=== PATIENT | male | born 1970 | race Two or more races ===

== ENCOUNTER 2018-01-31 22:56 | Emergency (ER) | payer BC, OTHER ==
[~2018-01-31] VITALS: Ht 165.1 cm; Wt 78.0 kg
[2018-01-31 23:06] VITALS: BP 150/97
== END 2018-02-01 00:32 | disposition home or self-care (01) ==
LOC: ER 22:56
DX: J30.9 Allergic rhinitis, unspecified (principal); H65.93 Unspecified nonsuppurative otitis media, bilateral; M62.838 Other muscle spasm

== ENCOUNTER 2020-07-24 00:19 | Emergency (ER) | payer BC, OTHER ==
[~2020-07-24] VITALS: Ht 167.6 cm; Wt 76.2 kg
[2020-07-24 00:30] VITALS: BP 146/87
[2020-07-24] MEDS ORDERED: methylPREDNISolone SOD SUCC 125 MG/2 ML VL IM ONE (03:30)
[2020-07-24] MEDS ORDERED: KETOROLAC TROMETH 60MG/2ML VIAL IM ONE (03:30)
== END 2020-07-24 04:05 | disposition home or self-care (01) ==
LOC: ER 00:19
DX: H65.93 Unspecified nonsuppurative otitis media, bilateral (principal); I10 Essential (primary) hypertension
CPT/HCPCS: 96372; 99284; J1885; J2930

== ENCOUNTER 2023-05-22 08:16 | Inpatient (IN) | payer BC, OTHER ==
[~2023-05-22] VITALS: Ht 165.1 cm; Wt 73.4 kg
[2023-05-22] VITALS (12 sets, daily range): BP systolic 120–138; BP diastolic 72–98; PULSE 79–91; RESP 18–28; TEMP 102.3; O2SAT 93–100
[2023-05-22] MEDS ORDERED: ACETAMINOPHEN 325 MG TAB PO ONE (08:30)
[2023-05-22] MEDS ORDERED: ASPirin 81 mg TAB PO ONE (08:30)
[2023-05-22 08:42] LABS: Basophils # (auto) 0.1 10 ^3/uL (0-0.2); Basophils % (auto) 0.8 % (0.0-2.0); Eosinophils # (auto) 0.1 10 ^3/uL (0-0.8); Eosinophils % (auto) 0.8 % (0.0-7.0); Hematocrit 49.8 % (41.0-53.0); Hemoglobin 15.9 g/dL (13.5-17.5); Lymphocytes # (auto) 1.1 10 ^3/uL (0.4-5.4); Lymphocytes % (auto) 10.6 % (10.0-50.0); Mean Corpuscular Hemoglobin 27.1 pg (28.0-32.0); Mean Corpuscular Hgb Conc. 31.9 g/dL (32.0-36.0); Monocytes # (auto) 0.7 10 ^3/uL (0-1.3); Monocytes % (auto) 6.7 % (0.0-12.0); Neutrophils # (auto) 8.4 10 ^3/uL (1.6-8.6); Neutrophils % (auto) 81.1 % (37.0-80.0); Nucleated Red Blood Cells % 0.1 %; Red Blood Cells 5.86 10^6/uL (4.5-5.90); Red Cell Distribution Width 16.6 % (11.8-14.3); White Blood Cell 10.3 10^3/uL (4.4-10.8)
[2023-05-22 08:57] LABS: Chloride 102 mmol/L (98-107); Potassium 4.4 mmol/L (3.5-5.1); Sodium 132 mmol/L (136-145)
[2023-05-22 09:00] LABS: Anion Gap 10 (5-15); Calcium 8.8 mg/dL (8.7-10.4); Carbon Dioxide 20 mmol/L (20-30)
[2023-05-22 09:05] LABS: Alkaline Phosphatase 118 U/L (46-116); BUN/Creatinine Ratio 5.8 (10.0-20.0); Blood Urea Nitrogen 7 mg/dL (9-23); Glucose 122 mg/dL (74-106); Magnesium 2.1 mg/dL (1.6-2.6)
[2023-05-22 09:07] LABS: Alanine Aminotransferase 54 U/L (7-40); Albumin 4.4 g/dL (3.2-4.8); Aspartate Aminotransferase 58 U/L (13-40); Bilirubin, Total 0.7 mg/dL (0.2-1.0); Total Protein 8.2 g/dL (5.7-8.2)
[2023-05-22 09:28] LABS: INR 1.26 (0.9-1.15); Partial Thromboplastin Time 29.1 SEC (24.5-34.5)
[2023-05-22] MEDS ORDERED: IOHEXOL 350 MG/ML 100ML IJ ONE (09:39)
[2023-05-22 10:21] LABS: Lactic Acid w/Reflex 2.1 mmol/L (0.4-2.0)
[2023-05-22 10:24] LABS: Rapid Influenza A Positive (Negative); Rapid Influenza B Negative (Negative)
[2023-05-22 10:28] LABS: COVID19 ANTIGEN SOFIA FIA NEGATIVE (NEGATIVE)
[2023-05-22] MEDS ORDERED: MORPHINE SULFATE INJ 2 MG/ml SYRG IV PRN ×3 (10:30→19:30)
[2023-05-22] MEDS ORDERED: NITROGLYCERIN 0.4 MG SL TAB SL PRN ×2 (10:30→19:30)
[2023-05-22] MEDS ORDERED: ONDANSETRON HCL 4 MG/2 ML VIAL IV PRN (10:30)
[2023-05-22] MEDS ORDERED: DOCUSATE SOD 100 MG CAP PO PRN (10:30)
[2023-05-22] MEDS ORDERED: AZITHROMYCIN 500MG/ 250ML 250 ML IV ONE (10:30)
[2023-05-22 11:55] LABS: Urine Bacteria NONE SEEN /hpf (None Seen); Urine Blood TRACE /uL (Negative); Urine Clarity Clear (Clear); Urine Color Yellow (Yellow); Urine Protein, UAD 2+ (Negative); Urine Specific Gravity 1.023 (1.001-1.035); Urine Urobilinogen Normal (Negative); Urine WBC <1 /hpf (0 - 3)
[2023-05-22] MEDS: SODIUM CHLOR 0.9% PF (SALINE LOCK) 10ML VIAL/SYR IV SCH ×2 (14:23→21:56)
[2023-05-22] MEDS: HYDROcodone-ACET 5/325MG TAB PO PRN (14:58)
[2023-05-22] MEDS ORDERED: ALBUTEROL MEDNEB 2.5 mg/3ml NEB NEB PRN (15:00)
[2023-05-22] MEDS ORDERED: IPRATROPIUM BROM 0.5 MG/2.5ML INH SOL NEB PRN (15:00)
[2023-05-22] MEDS ORDERED: PROMETHAZINE HCL 25 MG/ML 1ML IV ONE (18:00)
[2023-05-22] MEDS ORDERED: IODIXANOL 320MG/ML 100ML BTL IV ONE (19:10)
[2023-05-22] MEDS ORDERED: LIDOCAINE 2%HCL (LOCAL ANESTH.) INJ 20ML MDV ONE (19:10)
[2023-05-22] MEDS ORDERED: fentaNYL CITRATE 100 MCG/2 ML VL ONE (19:31)
[2023-05-22] MEDS ORDERED: VERAPAMIL 2.5MG/ML INJ 2ML VIAL IV ONE (19:31)
[2023-05-22] MEDS ORDERED: ANGIOMAX 250 MG VIAL IV ONE (19:31)
[2023-05-22] MEDS ORDERED: HEPARIN SODIUM (PORCINE) 5000 UNITS/ML 1ML VIAL ONE (19:31)
[2023-05-22] MEDS ORDERED: SODIUM CHL 0.9% 0 ML ONE (19:32)
[2023-05-22] MEDS ORDERED: MIDAZOLAM HCL 2MG/2ML 2ml VIAL (1mg/ml) ONE (19:32)
[2023-05-22] MEDS ORDERED: HEPARIN 1,000 UNITS/ml 1ML VIAL ONE (19:35)
[2023-05-22] MEDS: ATORVASTATIN 20 MG TAB PO SCH ×2 (21:55→22:00)
[2023-05-22] MEDS: IBUPROFEN 600 MG TAB PO PRN (21:56)
[2023-05-23] VITALS (8 sets, daily range): BP systolic 109–140; BP diastolic 68–90; PULSE 72–99; RESP 19–22; TEMP 97.7–99.9; O2SAT 92–99
[2023-05-23] MEDS ORDERED: AMLO1TAB22 PO (04:31)
[2023-05-23] MEDS ORDERED: ENAL1TAB48 PO (04:31)
[2023-05-23 05:47] LABS: Alanine Aminotransferase 39 U/L (7-40); Albumin 3.7 g/dL (3.2-4.8); Alkaline Phosphatase 91 U/L (46-116); Anion Gap 6 (5-15); Aspartate Aminotransferase 43 U/L (13-40); BUN/Creatinine Ratio 11.4 (10.0-20.0); Bilirubin, Total 0.5 mg/dL (0.2-1.0); Blood Urea Nitrogen 13 mg/dL (9-23); Calcium 8.4 mg/dL (8.5-10.1); Carbon Dioxide 26 mmol/L (20-30); Chloride 104 mmol/L (98-107); Glucose 82 mg/dL (74-106); Potassium 4.4 mmol/L (3.5-5.1); Sodium 136 mmol/L (136-145)
[2023-05-23 05:48] LABS: Total Protein 6.9 g/dL (5.7-8.2)
[2023-05-23] MEDS: SODIUM CHLOR 0.9% PF (SALINE LOCK) 10ML VIAL/SYR IV SCH ×3 (06:02→21:01)
[2023-05-23 06:03] LABS: Basophils # (auto) 0.1 10 ^3/uL (0-0.2); Basophils % (auto) 0.6 % (0.0-2.0); Eosinophils # (auto) 0 10 ^3/uL (0-0.8); Eosinophils % (auto) 0.3 % (0.0-7.0); Hematocrit 46.6 % (41.0-53.0); Lymphocytes # (auto) 1.4 10 ^3/uL (0.4-5.4); Lymphocytes % (auto) 14.3 % (10.0-50.0); Mean Corpuscular Hgb Conc. 32.2 g/dL (32.0-36.0); Mean Corpuscular Volume 83.9 fL (80.0-100.0); Monocytes # (auto) 0.8 10 ^3/uL (0-1.3); Monocytes % (auto) 8.5 % (0.0-12.0); Neutrophils # (auto) 7.3 10 ^3/uL (1.6-8.6); Neutrophils % (auto) 76.3 % (37.0-80.0); Nucleated Red Blood Cells % 0.1 %; Red Blood Cells 5.56 10^6/uL (4.5-5.90); Red Cell Distribution Width 16.4 % (11.8-14.3); White Blood Cell 9.5 10^3/uL (4.4-10.8)
[2023-05-23] MEDS ORDERED: FUROSEMIDE 40 MG/4 ML VIAL IV ONE (08:30)
[2023-05-23 09:00] LABS: Hepatitis B Surface Antigen Negative (Negative); Triglycerides 94 mg/dL (< 150)
[2023-05-23 09:01] LABS: LDL Cholesterol 63 mg/dL (< 100)
[2023-05-23 09:02] LABS: Cholesterol 91 mg/dL (< 200); Creatine Kinase IFCC 221 U/L (46-171); HDL Cholesterol 16 mg/dL (40-59)
[2023-05-23 09:22] LABS: Hepatitis C Antibody Negative (Negative)
[2023-05-23] MEDS ORDERED: FUROSEMIDE 40 MG/4 ML VIAL IV SCH (10:00)
[2023-05-23] MEDS: ASPirin 81 mg TAB PO SCH (10:08)
[2023-05-23] MEDS: AZITHROMYCIN 500MG/ 250ML 250 ML IV SCH (10:08)
[2023-05-23] MEDS ORDERED: cefTRIAXone 1GM/50ML D5W 50 ML IV ONE (13:00)
[2023-05-23] MEDS: IBUPROFEN 600 MG TAB PO PRN (13:06)
[2023-05-23] MEDS: FUROSEMIDE 40 MG/4 ML VIAL IV SCH (17:34)
[2023-05-23] MEDS: OSELTAMIVIR 75 MG CAP PO SCH (21:01)
[2023-05-24] VITALS (7 sets, daily range): BP systolic 114–124; BP diastolic 68–78; PULSE 76–99; RESP 18–23; TEMP 97.6–101.8; O2SAT 92–99
[2023-05-24] MEDS ORDERED: LIDOCAINE 2%HCL (LOCAL ANESTH.) INJ 20ML MDV ONE (04:02)
[2023-05-24] MEDS ORDERED: HEPARIN SODIUM (PORCINE) 5000 UNITS/ML 1ML VIAL ONE (04:02)
[2023-05-24] MEDS ORDERED: VERAPAMIL 2.5MG/ML INJ 2ML VIAL IV ONE (04:02)
[2023-05-24] MEDS ORDERED: SODIUM CHL 0.9% 0 ML ONE (04:02)
[2023-05-24] MEDS ORDERED: fentaNYL CITRATE 100 MCG/2 ML VL ONE (04:02)
[2023-05-24] MEDS ORDERED: MIDAZOLAM HCL 2MG/2ML 2ml VIAL (1mg/ml) ONE (04:02)
[2023-05-24] MEDS ORDERED: ANGIOMAX 250 MG VIAL IV ONE (04:02)
[2023-05-24] MEDS ORDERED: IODIXANOL 320MG/ML 100ML BTL IV ONE (04:03)
[2023-05-24] MEDS: IBUPROFEN 600 MG TAB PO PRN (05:37)
[2023-05-24] MEDS: FUROSEMIDE 40 MG/4 ML VIAL IV SCH ×2 (05:37→16:58)
[2023-05-24] MEDS: SODIUM CHLOR 0.9% PF (SALINE LOCK) 10ML VIAL/SYR IV SCH ×3 (05:38→21:56)
[2023-05-24] MEDS: ASPirin 81 mg TAB PO SCH (09:37)
[2023-05-24] MEDS: OSELTAMIVIR 75 MG CAP PO SCH ×2 (09:37→21:56)
[2023-05-24] MEDS: cefTRIAXone 1GM/50ML D5W 50 ML IV SCH (09:38)
[2023-05-24] MEDS: ENOXAPARIN SOD 40 MG/0.4 ML SYRINGE SC SCH (10:20)
[2023-05-24] MEDS: AZITHROMYCIN 500MG/ 250ML 250 ML IV SCH (10:20)
[2023-05-24] MEDS: ATORVASTATIN 20 MG TAB PO SCH (21:56)
[2023-05-25] VITALS (7 sets, daily range): BP systolic 91–120; BP diastolic 61–80; PULSE 59–89; RESP 16–20; TEMP 98–101.2; O2SAT 94–99
[2023-05-25] MEDS: IBUPROFEN 600 MG TAB PO PRN (05:45)
[2023-05-25 06:34] LABS: Anion Gap 8 (5-15); Carbon Dioxide 28 mmol/L (20-30); Chloride 96 mmol/L (98-107); Potassium 3.8 mmol/L (3.5-5.1); Sodium 132 mmol/L (136-145)
[2023-05-25 06:35] LABS: Calcium 8.4 mg/dL (8.7-10.4)
[2023-05-25] MEDS: SODIUM CHLOR 0.9% PF (SALINE LOCK) 10ML VIAL/SYR IV SCH ×2 (06:38→17:51)
[2023-05-25] MEDS: FUROSEMIDE 40 MG/4 ML VIAL IV SCH ×2 (06:39→17:52)
[2023-05-25 06:40] LABS: BUN/Creatinine Ratio 12.9 (10.0-20.0); Blood Urea Nitrogen 19 mg/dL (9-23); Glucose 97 mg/dL (74-106)
[2023-05-25 06:57] LABS: Basophils # (auto) 0 10 ^3/uL (0-0.2); Basophils % (auto) 0.4 % (0.0-2.0); Eosinophils # (auto) 0 10 ^3/uL (0-0.8); Eosinophils % (auto) 0.1 % (0.0-7.0); Hematocrit 50.3 % (41.0-53.0); Hemoglobin 16.4 g/dL (13.5-17.5); Lymphocytes % (auto) 19.5 % (10.0-50.0); Mean Corpuscular Hemoglobin 26.9 pg (28.0-32.0); Mean Corpuscular Hgb Conc. 32.5 g/dL (32.0-36.0); Mean Corpuscular Volume 82.7 fL (80.0-100.0); Monocytes # (auto) 0.7 10 ^3/uL (0-1.3); Monocytes % (auto) 6.8 % (0.0-12.0); Neutrophils # (auto) 7.5 10 ^3/uL (1.6-8.6); Neutrophils % (auto) 73.2 % (37.0-80.0); Nucleated Red Blood Cells % 0.8 %; Red Blood Cells 6.08 10^6/uL (4.5-5.90); Red Cell Distribution Width 16.4 % (11.8-14.3); White Blood Cell 10.2 10^3/uL (4.4-10.8)
[2023-05-25] MEDS: cefTRIAXone 1GM/50ML D5W 50 ML IV SCH (08:46)
[2023-05-25] MEDS: ENOXAPARIN SOD 40 MG/0.4 ML SYRINGE SC SCH (08:46)
[2023-05-25] MEDS: ASPirin 81 mg TAB PO SCH (08:46)
[2023-05-25] MEDS: SILDENAFIL CITRATE 20 MG TAB PO SCH ×2 (08:47→13:26)
[2023-05-25] MEDS: OSELTAMIVIR 75 MG CAP PO SCH (08:47)
[2023-05-25] MEDS: AZITHROMYCIN 500MG/ 250ML 250 ML IV SCH (11:20)
[2023-05-26] VITALS (7 sets, daily range): BP systolic 100–115; BP diastolic 66–76; PULSE 77–87; RESP 16–18; TEMP 98.3–98.6; O2SAT 94–98
[2023-05-26] MEDS: ATORVASTATIN 20 MG TAB PO SCH ×2 (00:15→21:26)
[2023-05-26] MEDS: SODIUM CHLOR 0.9% PF (SALINE LOCK) 10ML VIAL/SYR IV SCH ×4 (00:16→21:26)
[2023-05-26] MEDS: OSELTAMIVIR 75 MG CAP PO SCH ×3 (00:16→21:26)
[2023-05-26] MEDS: SILDENAFIL CITRATE 20 MG TAB PO SCH ×3 (00:16→13:48)
[2023-05-26] MEDS: FUROSEMIDE 40 MG/4 ML VIAL IV SCH ×2 (06:33→17:12)
[2023-05-26 07:03] LABS: Anion Gap 10 (5-15); Carbon Dioxide 26 mmol/L (20-30); Chloride 97 mmol/L (98-107); Potassium 3.6 mmol/L (3.5-5.1); Sodium 133 mmol/L (136-145)
[2023-05-26 07:09] LABS: Blood Urea Nitrogen 24 mg/dL (9-23); Glucose 99 mg/dL (74-106)
[2023-05-26] MEDS: ASPirin 81 mg TAB PO SCH (08:05)
[2023-05-26] MEDS: ENOXAPARIN SOD 40 MG/0.4 ML SYRINGE SC SCH (08:05)
[2023-05-26] MEDS: cefTRIAXone 1GM/50ML D5W 50 ML IV SCH (08:06)
[2023-05-26] MEDS: HYDROcodone-ACET 5/325MG TAB PO PRN ×2 (10:35→21:33)
[2023-05-26] MEDS: AZITHROMYCIN 500MG/ 250ML 250 ML IV SCH (10:41)
[2023-05-27 05:00] VITALS: BP 115/71; PULSE 77; RESP 16; TEMP 97.9; O2SAT 99
[2023-05-27] MEDS: FUROSEMIDE 40 MG/4 ML VIAL IV SCH ×2 (05:37→18:52)
[2023-05-27] MEDS: SODIUM CHLOR 0.9% PF (SALINE LOCK) 10ML VIAL/SYR IV SCH ×3 (05:41→23:17)
[2023-05-27 05:46] LABS: Basophils # (auto) 0 10 ^3/uL (0-0.2); Basophils % (auto) 0.4 % (0.0-2.0); Eosinophils # (auto) 0.2 10 ^3/uL (0-0.8); Eosinophils % (auto) 3.1 % (0.0-7.0); Hematocrit 44.8 % (41.0-53.0); Hemoglobin 14.8 g/dL (13.5-17.5); Lymphocytes # (auto) 1.8 10 ^3/uL (0.4-5.4); Lymphocytes % (auto) 26.7 % (10.0-50.0); Mean Corpuscular Hemoglobin 27.1 pg (28.0-32.0); Monocytes # (auto) 0.3 10 ^3/uL (0-1.3); Neutrophils # (auto) 4.4 10 ^3/uL (1.6-8.6); Neutrophils % (auto) 65.8 % (37.0-80.0); Nucleated Red Blood Cells % 0.1 %; Red Blood Cells 5.47 10^6/uL (4.5-5.90); White Blood Cell 6.6 10^3/uL (4.4-10.8)
[2023-05-27 06:03] LABS: Alanine Aminotransferase 21 U/L (7-40); Albumin 3.6 g/dL (3.2-4.8); Alkaline Phosphatase 78 U/L (46-116); Anion Gap 7 (5-15); Aspartate Aminotransferase 43 U/L (13-40); Bilirubin, Total 0.6 mg/dL (0.2-1.0); Blood Urea Nitrogen 16 mg/dL (9-23); Carbon Dioxide 30 mmol/L (20-30); Chloride 94 mmol/L (98-107); Glucose 88 mg/dL (74-106); Magnesium 1.9 mg/dL (1.6-2.6); Potassium 3.3 mmol/L (3.5-5.1); Sodium 131 mmol/L (136-145); Total Protein 6.9 g/dL (5.7-8.2)
[2023-05-27 06:39] LABS: CRP High Sensitivity 3.67 mg/dL (<1.0)
[2023-05-27 08:00] VITALS: BP 105/69; PULSE 71; RESP 20; TEMP 97.5; O2SAT 100
[2023-05-27] MEDS ORDERED: POTASSIUM EFFERVESENT TAB 25 MEQ PO ONE (08:15)
[2023-05-27] MEDS ORDERED: ATOR20TA PO (10:37)
[2023-05-27] MEDS ORDERED: TAMIFLU PO (10:37)
[2023-05-27] MEDS ORDERED: FURO1TAB33 PO (10:37)
[2023-05-27] MEDS: ENOXAPARIN SOD 40 MG/0.4 ML SYRINGE SC SCH (10:49)
[2023-05-27] MEDS: ASPirin 81 mg TAB PO SCH (10:50)
[2023-05-27] MEDS: OSELTAMIVIR 75 MG CAP PO SCH ×2 (10:51→23:17)
[2023-05-27] MEDS: cefTRIAXone 1GM/50ML D5W 50 ML IV SCH (11:28)
[2023-05-27 12:00] VITALS: BP 112/75; PULSE 78; RESP 21; TEMP 97.6; O2SAT 97
[2023-05-27] MEDS: AZITHROMYCIN 500MG/ 250ML 250 ML IV SCH (13:45)
[2023-05-27 14:56] LABS: Base Excess 5.9 mmol/L (-2.0-2.0)
[2023-05-27 16:00] VITALS: BP 105/65; PULSE 77; RESP 20; TEMP 97.7; O2SAT 96
[2023-05-27 20:00] VITALS: PULSE 83; RESP 20; O2SAT 93
[2023-05-27 22:00] VITALS: BP 122/88; PULSE 87; RESP 20; TEMP 99.1; O2SAT 95
[2023-05-27] MEDS: ATORVASTATIN 20 MG TAB PO SCH (23:17)
[2023-05-28] VITALS (7 sets, daily range): BP systolic 116–124; BP diastolic 75–86; PULSE 67–80; RESP 16–17; TEMP 97.3–98.2; O2SAT 95–99
[2023-05-28 05:25] LABS: Chloride 94 mmol/L (98-107); Potassium 3.6 mmol/L (3.5-5.1); Sodium 132 mmol/L (136-145)
[2023-05-28 05:26] LABS: Anion Gap 5 (5-15); Calcium 8.4 mg/dL (8.7-10.4); Carbon Dioxide 33 mmol/L (20-30)
[2023-05-28 05:31] LABS: BUN/Creatinine Ratio 13.5 (10.0-20.0); Blood Urea Nitrogen 14 mg/dL (9-23); Glucose 112 mg/dL (74-106); Magnesium 2.1 mg/dL (1.6-2.6)
[2023-05-28 05:36] LABS: Basophils # (auto) 0 10 ^3/uL (0-0.2); Basophils % (auto) 0.3 % (0.0-2.0); Eosinophils # (auto) 0.1 10 ^3/uL (0-0.8); Eosinophils % (auto) 1.4 % (0.0-7.0); Hematocrit 45.4 % (41.0-53.0); Hemoglobin 15.1 g/dL (13.5-17.5); Lymphocytes # (auto) 1.4 10 ^3/uL (0.4-5.4); Lymphocytes % (auto) 16.8 % (10.0-50.0); Mean Corpuscular Hemoglobin 27.2 pg (28.0-32.0); Mean Corpuscular Hgb Conc. 33.1 g/dL (32.0-36.0); Monocytes # (auto) 0.3 10 ^3/uL (0-1.3); Monocytes % (auto) 3.9 % (0.0-12.0); Neutrophils # (auto) 6.4 10 ^3/uL (1.6-8.6); Neutrophils % (auto) 77.6 % (37.0-80.0); Nucleated Red Blood Cells % 0.3 %; Red Blood Cells 5.54 10^6/uL (4.5-5.90); Red Cell Distribution Width 15.8 % (11.8-14.3); White Blood Cell 8.2 10^3/uL (4.4-10.8)
[2023-05-28] MEDS: SODIUM CHLOR 0.9% PF (SALINE LOCK) 10ML VIAL/SYR IV SCH ×3 (06:46→22:00)
[2023-05-28] MEDS: FUROSEMIDE 40 MG/4 ML VIAL IV SCH ×2 (06:46→18:00)
[2023-05-28] MEDS: cefTRIAXone 1GM/50ML D5W 50 ML IV SCH (08:22)
[2023-05-28] MEDS ORDERED: POTASSIUM EFFERVESENT TAB 25 MEQ PO ONE (09:45)
[2023-05-28] MEDS: ASPirin 81 mg TAB PO SCH (09:54)
[2023-05-28] MEDS: ATORVASTATIN 20 MG TAB PO SCH (09:54)
[2023-05-28] MEDS: AZITHROMYCIN 500MG/ 250ML 250 ML IV SCH (09:54)
[2023-05-28] MEDS: OSELTAMIVIR 75 MG CAP PO SCH (09:54)
[2023-05-28] MEDS: ENOXAPARIN SOD 40 MG/0.4 ML SYRINGE SC SCH (09:55)
[2023-05-29 05:00] VITALS: BP 128/82; PULSE 72; RESP 18; TEMP 98.3; O2SAT 99
[2023-05-29 05:03] LABS: Lymphocytes % (auto) 19.4 % (10.0-50.0); Mean Corpuscular Hemoglobin 26.8 pg (28.0-32.0); Monocytes # (auto) 0.5 10 ^3/uL (0-1.3); Nucleated Red Blood Cells % 0.1 %
[2023-05-29 05:05] LABS: Basophils # (auto) 0 10 ^3/uL (0-0.2); Basophils % (auto) 0.5 % (0.0-2.0); Eosinophils # (auto) 0.3 10 ^3/uL (0-0.8); Eosinophils % (auto) 3.2 % (0.0-7.0); Hematocrit 45.4 % (41.0-53.0); Hemoglobin 14.9 g/dL (13.5-17.5); Lymphocytes # (auto) 1.8 10 ^3/uL (0.4-5.4); Mean Corpuscular Hgb Conc. 32.7 g/dL (32.0-36.0); Mean Corpuscular Volume 81.8 fL (80.0-100.0); Monocytes % (auto) 5.4 % (0.0-12.0); Neutrophils # (auto) 6.7 10 ^3/uL (1.6-8.6); Neutrophils % (auto) 71.5 % (37.0-80.0); Red Blood Cells 5.55 10^6/uL (4.5-5.90); White Blood Cell 9.4 10^3/uL (4.4-10.8)
[2023-05-29 05:18] LABS: Alanine Aminotransferase 55 U/L (7-40); Aspartate Aminotransferase 97 U/L (13-40); BUN/Creatinine Ratio 10.1 (10.0-20.0); Bilirubin, Total 0.7 mg/dL (0.2-1.0); Blood Urea Nitrogen 12 mg/dL (9-23); Calcium 9.2 mg/dL (8.5-10.1); Chloride 94 mmol/L (98-107); Glucose 97 mg/dL (74-106); Potassium 3.8 mmol/L (3.5-5.1); Sodium 134 mmol/L (136-145); Total Protein 7.4 g/dL (5.7-8.2)
[2023-05-29 05:29] LABS: Anion Gap 6 (5-15); Carbon Dioxide 34 mmol/L (20-30)
[2023-05-29 05:34] LABS: Alkaline Phosphatase 88 U/L (46-116); Magnesium 2.2 mg/dL (1.6-2.6)
[2023-05-29] MEDS: FUROSEMIDE 40 MG/4 ML VIAL IV SCH (06:00)
[2023-05-29] MEDS: SODIUM CHLOR 0.9% PF (SALINE LOCK) 10ML VIAL/SYR IV SCH (06:00)
[2023-05-29 08:00] VITALS: PULSE 68; RESP 18; O2SAT 96
[2023-05-29 09:00] VITALS: BP 127/77; PULSE 73; RESP 16; TEMP 97.9; O2SAT 97
[2023-05-29] MEDS: cefTRIAXone 1GM/50ML D5W 50 ML IV SCH (09:00)
[2023-05-29 09:43] VITALS: BP 128/82
[2023-05-29] MEDS ORDERED: FUROSEMIDE 40 MG TAB PO SCH (09:45)
[2023-05-29] MEDS: ASPirin 81 mg TAB PO SCH (09:49)
[2023-05-29] MEDS: ENOXAPARIN SOD 40 MG/0.4 ML SYRINGE SC SCH (09:50)
[2023-05-29] MEDS: AZITHROMYCIN 500MG/ 250ML 250 ML IV SCH (09:50)
== END 2023-05-29 14:15 | disposition home or self-care (01) | DRG 871 ==
LOC: ER 08:16 → TELE 10:35 → TELE-EAST 20:55
PROVIDERS: ADMIT Internal Medicine Pulmonary Disease; ATTEND Student in an Organized Health Care Education/Training Program
PROC: 4A023N7 Measurement of Cardiac Sampling and Pressure, Left Heart, Percutaneous Approach (ICD-10-PCS; principal; 2023-05-22)
PROC: B2111ZZ Fluoroscopy of Multiple Coronary Arteries using Low Osmolar Contrast (ICD-10-PCS; 2023-05-22)
DX: A41.89 Other specified sepsis (principal); I21.A1 Myocardial infarction type 2; J96.01 Acute respiratory failure with hypoxia; I50.33 Acute on chronic diastolic (congestive) heart failure; Z20.822 Contact with and (suspected) exposure to COVID-19; J10.08 Influenza due to other identified influenza virus with other specified pneumonia; I42.0 Dilated cardiomyopathy; I31.39 Other pericardial effusion (noninflammatory); J98.11 Atelectasis; I11.0 Hypertensive heart disease with heart failure; I27.20 Pulmonary hypertension, unspecified; R74.01 Elevation of levels of liver transaminase levels; R59.1 Generalized enlarged lymph nodes; R73.03 Prediabetes
CPT/HCPCS: 36415; 36600; 71045; 71275; 80048; 80053; 80061; 81001; 82550; 82805; 83036; 83605; 83615; 83735; 83880; 84443; 84484; 85025; 85379; 85610; 85730; 86141; 86803; 86850; 86900; 86901; 87040; 87340; 87426; 87804; 93005; 93306; 93970; 94640; 99152; G0378; J0696; J2250; Q9967